=== PATIENT | female | born 1995 | race Caucasian/White ===

== ENCOUNTER 2018-11-19 02:19 | Inpatient (IN) | payer OTHER ==
[2018-11-19 03:43] LABS: ADD UMIC YES; UR ASCORBIC ACID NEGATIVE (NEGATIVE); UR BACTERIA FEW /HPF (NONE SEEN); UR BILIRUBIN (Dip) NEGATIVE (NEGATIVE); UR BLOOD (Dip) NEGATIVE (NEGATIVE); UR CLARITY CLEAR (CLEAR); UR COLOR YELLOW (YELLOW); UR GLUCOSE (Dip) NEGATIVE (NEGATIVE); UR KETONES (Dip) NEGATIVE (NEGATIVE); UR LEUKOCYTE ESTERASE (Dip) 1+ Leu/ul (NEGATIVE); UR NITRITE (Dip) NEGATIVE (NEGATIVE); UR RBC 1 /HPF (0-5); UR SPECIFIC GRAVITY (Dip) 1.008 (1.003-1.030); UR SQUAMOUS EPITHELIAL CELL FEW /HPF (FEW); UR TOTAL PROTEIN (Dip) NEGATIVE (NEGATIVE); UR UROBILINOGEN (Dip) NEGATIVE (NEGATIVE); UR WBC 1 /HPF (0-5)
[2018-11-19 04:46] LABS: ADD MAN DIFF? NO
[2018-11-19 04:48] LABS: BASOPHIL # 0.1 10^3/ul (0.0-0.1); BASOPHILS % 0.5 % (0.0-2.0); EOSINOPHILS # 0.1 10^3/ul (0.0-0.5); EOSINOPHILS % 0.7 % (0.0-7.0); HEMATOCRIT 32.3 % (37.0-47.0); HEMOGLOBIN 11.4 g/dl (12.0-16.0); LYMPHOCYTES # 1.6 10^3/ul (0.8-2.9); LYMPHOCYTES % 16.9 % (15.0-51.0); MEAN CORPUSCULAR HGB CONC 35.3 g/dl (32.0-37.0); MONOCYTE # 0.8 10^3/ul (0.3-0.9); MONOCYTES % 8.5 % (0.0-11.0); PLATELET COUNT 164 10^3/UL (140-415); RED CELL DISTRIBUTION WIDTH 13.1 % (11.5-14.5)
[2018-11-19 04:48] LABS: WHITE BLOOD COUNT 9.7 10^3/ul (4.8-10.8)
[2018-11-19 05:05] LABS: ALANINE AMINOTRANSFERASE 22 IU/L (13-69); ALBUMIN 3.3 g/dl (3.3-4.9); ALKALINE PHOSPHATASE 162 IU/L (42-121); ANION GAP 6 (5-13); ASPARTATE AMINO TRANSFERASE 24 IU/L (15-46); BILIRUBIN,INDIRECT 0.4 mg/dl (0-1.1); BILIRUBIN,TOTAL 0.4 mg/dl (0.2-1.3); BLOOD UREA NITROGEN 12 mg/dl (7-20); CALCIUM 9.2 mg/dl (8.4-10.2); CARBON DIOXIDE 24 mmol/L (21-31); CHLORIDE 107 mmol/L (97-110); CREATININE 0.61 mg/dl (0.44-1.00); Estimated GFR > 60 mL/min (>60); GLUCOSE 74 mg/dl (70-220); POTASSIUM 4.2 mmol/L (3.5-5.1); SODIUM 137 mmol/L (135-144); TOTAL PROTEIN 6.3 g/dl (6.1-8.1); URIC ACID 4.9 mg/dl (3.1-7.9)
[2018-11-19 05:07] LABS: INR 0.95; PROTIME 12.8 Sec (11.9-14.9)
[2018-11-19 05:08] LABS: PARTIAL THROMBOPLASTIN TIME 25.2 Sec (23.0-35.0)
[2018-11-19] MEDS ORDERED: AMPICILLIN 2 GM/NS (PMX) 100 ML IV (06:00)
[2018-11-19] MEDS ORDERED: LIDOCAINE 1% (MPF) 30 ML INJ INJ (06:00)
[2018-11-19] MEDS ORDERED: BUTORPHANOL 2 MG INJ IV ×2 (06:00)
[2018-11-19] MEDS ORDERED: MISOPROSTOL 200 MCG TAB PR ×3 (06:00→23:30)
[2018-11-19] MEDS ORDERED: OXYTOCIN 30 UNITS/LR 500 ML IV ×5 (06:00→23:30)
[2018-11-19] MEDS: MINERAL OIL LIGHT 10 ML VIAL TOP (06:00)
[2018-11-19] MEDS ORDERED: IBUPROFEN 600 MG TAB PO (06:00)
[2018-11-19] MEDS ORDERED: CARBOPROST 250 MCG INJ IM ×3 (06:00→23:30)
[2018-11-19] MEDS ORDERED: METHYLERGONOVINE 0.2 MG INJ IM ×3 (06:00→23:30)
[2018-11-19 07:32] LABS: ADD MAN DIFF? NO
[2018-11-19 07:33] LABS: BASOPHIL # 0.1 10^3/ul (0.0-0.1); BASOPHILS % 0.6 % (0.0-2.0); EOSINOPHILS # 0.1 10^3/ul (0.0-0.5); EOSINOPHILS % 0.5 % (0.0-7.0); HEMATOCRIT 35.1 % (37.0-47.0); HEMOGLOBIN 12.3 g/dl (12.0-16.0); LYMPHOCYTES # 1.8 10^3/ul (0.8-2.9); LYMPHOCYTES % 17.7 % (15.0-51.0); MEAN CORPUSCULAR HEMOGLOBIN 29.9 pg (29.0-33.0); MEAN CORPUSCULAR VOLUME 85.4 fl (82.0-101.0); MEAN PLATELET VOLUME 12.9 fl (7.4-10.4); MONOCYTE # 0.8 10^3/ul (0.3-0.9); NEUTROPHIL # 7.2 10^3/ul (1.6-7.5); NEUTROPHILS % 71.9 % (39.0-77.0); PLATELET COUNT 183 10^3/UL (140-415); RED BLOOD COUNT 4.11 10^6/ul (4.20-5.40); RED CELL DISTRIBUTION WIDTH 13.3 % (11.5-14.5)
[2018-11-19] MEDS: LACTATED RINGER'S 1,000 ML IV ×5 (07:47→22:51)
[2018-11-19 07:53] LABS: PROTIME 12.3 Sec (11.9-14.9)
[2018-11-19 07:54] LABS: PARTIAL THROMBOPLASTIN TIME 24.5 Sec (23.0-35.0)
[2018-11-19] MEDS: OXYTOCIN 30 UNITS/LR 500 ML IV (08:22)
[2018-11-19 09:55] LABS: HEPATITIS B SURFACE ANTIGEN NEGATIVE (NEGATIVE)
[2018-11-19] MEDS ORDERED: AMPICILLIN 1 GM/NS (PMX) 50 ML IV (10:00)
[2018-11-19 15:09] LABS: RAPID PLASMA REAGIN NONREACTIVE (NR)
[2018-11-19] MEDS ORDERED: DIPHENHYDRAMINE 50 MG INJ IV ×2 (16:30)
[2018-11-19] MEDS ORDERED: ONDANSETRON 4 MG INJ IV ×2 (16:30)
[2018-11-19] MEDS ORDERED: MEPERIDINE 25 MG INJ IV (16:30)
[2018-11-19] MEDS ORDERED: FENTAnyl 50 MCG/ML VIAL IV ×3 (16:30)
[2018-11-19] MEDS ORDERED: PROCHLORPERAZINE 10 MG INJ IV (16:30)
[2018-11-19] MEDS ORDERED: NALOXONE (0.4 MG/ML) INJ IV (16:30)
[2018-11-19] MEDS ORDERED: KETOROLAC 30 MG INJ IV (16:30)
[2018-11-19] MEDS ORDERED: HYDROmorphONE 1 MG/5 ML IV SYRINGE IV ×3 (16:30)
[2018-11-19] MEDS: FENTAnyl 2MCG/ML-ROPIV 0.2% 100 ML BAG EPI (18:37)
[2018-11-19] MEDS: MAGNESIUM SULFATE 4 GM/100 ML 100 ML IVPB (22:30)
[2018-11-19 22:54] LABS: ADD MAN DIFF? NO
[2018-11-19 22:56] LABS: WHITE BLOOD COUNT 10.7 10^3/ul (4.8-10.8)
[2018-11-19 22:56] LABS: BASOPHIL # 0.1 10^3/ul (0.0-0.1); BASOPHILS % 0.5 % (0.0-2.0); EOSINOPHILS % 0.1 % (0.0-7.0); HEMATOCRIT 31.9 % (37.0-47.0); HEMOGLOBIN 11.2 g/dl (12.0-16.0); LYMPHOCYTES # 1.3 10^3/ul (0.8-2.9); LYMPHOCYTES % 11.7 % (15.0-51.0); MEAN CORPUSCULAR HEMOGLOBIN 29.7 pg (29.0-33.0); MEAN CORPUSCULAR HGB CONC 35.1 g/dl (32.0-37.0); MEAN CORPUSCULAR VOLUME 84.6 fl (82.0-101.0); MONOCYTES % 8.9 % (0.0-11.0); NEUTROPHIL # 8.3 10^3/ul (1.6-7.5); PLATELET COUNT 167 10^3/UL (140-415); RED BLOOD COUNT 3.77 10^6/ul (4.20-5.40); RED CELL DISTRIBUTION WIDTH 13.1 % (11.5-14.5)
[2018-11-19] MEDS: CEFAZOLIN 2 GM/50 ML (PMX) 50 ML IVPB (23:00)
[2018-11-19] MEDS ORDERED: HYDROCODONE/APAP (5/325) TAB PO ×2 (23:00)
[2018-11-19] MEDS ORDERED: NA PHOSPHATE/BIPHOS 133 ML ENEMA PR (23:00)
[2018-11-19] MEDS ORDERED: METHYLERGONOVINE 0.2 MG TAB PO (23:00)
[2018-11-19] MEDS: MAGNESIUM SULFATE 20 GM/500 ML 500 ML IV (23:07)
[2018-11-19] MEDS: ACETAMINOPHEN 325 MG TAB PO (23:09)
[2018-11-19 23:20] LABS: INR 0.98; PROTIME 13.1 Sec (11.9-14.9)
[2018-11-19 23:21] LABS: PARTIAL THROMBOPLASTIN TIME 26.5 Sec (23.0-35.0)
[2018-11-19 23:23] LABS: ALANINE AMINOTRANSFERASE 21 IU/L (13-69); ALBUMIN 3.1 g/dl (3.3-4.9); ALKALINE PHOSPHATASE 148 IU/L (42-121); ANION GAP 8 (5-13); ASPARTATE AMINO TRANSFERASE 22 IU/L (15-46); BILIRUBIN,INDIRECT 0.5 mg/dl (0-1.1); BILIRUBIN,TOTAL 0.5 mg/dl (0.2-1.3); BLOOD UREA NITROGEN 8 mg/dl (7-20); CALCIUM 8.9 mg/dl (8.4-10.2); CARBON DIOXIDE 23 mmol/L (21-31); CHLORIDE 110 mmol/L (97-110); CREATININE 0.57 mg/dl (0.44-1.00); Estimated GFR > 60 mL/min (>60); GLUCOSE 66 mg/dl (70-220); POTASSIUM 3.3 mmol/L (3.5-5.1); SODIUM 141 mmol/L (135-144); TOTAL PROTEIN 5.9 g/dl (6.1-8.1)
[2018-11-19] MEDS ORDERED: CEFAZOLIN 2 GM/50 ML (PMX) 50 ML IVPB (23:30)
[2018-11-19] MEDS: AL HYDROX/MG HYDROX/SIMETH 30 ML CUP PO (23:30)
[2018-11-19] MEDS: CITRIC ACID/NA CITRATE 30 ML CUP PO (23:39)
[2018-11-19] MEDS: METOCLOPRAMIDE 10 MG INJ IV (23:39)
[2018-11-19] MEDS: FAMOTIDINE 20 MG INJ IV (23:39)
[2018-11-19] MEDS ORDERED: MAGNESIUM SULFATE 20 GM/500 ML 500 ML IV (23:46)
[2018-11-20] MEDS ORDERED: CA GLUCONATE (GM) 10% 10ML INJ IV
[2018-11-20] MEDS ORDERED: morphine SULFATE/PF (10 MG/10 ML) INJ
[2018-11-20] MEDS ORDERED: NA BICARBONATE 8.4% 50 ML SYG (00:10)
[2018-11-20] MEDS ORDERED: LIDOCAINE 1.5%/EPI MPF (SDV) 30 ML VIAL (00:10)
[2018-11-20] MEDS ORDERED: ONDANSETRON 4 MG INJ IV ×2 (00:30→01:00)
[2018-11-20] MEDS ORDERED: FENTAnyl 50 MCG/ML VIAL IV ×3 (00:30)
[2018-11-20] MEDS ORDERED: HYDROmorphONE 1 MG/5 ML IV SYRINGE IV ×3 (00:30)
[2018-11-20] MEDS ORDERED: MEPERIDINE 25 MG INJ IV (00:30)
[2018-11-20] MEDS ORDERED: PROCHLORPERAZINE 10 MG INJ IV (00:30)
[2018-11-20] MEDS ORDERED: DIPHENHYDRAMINE 50 MG INJ IV ×2 (00:30→01:00)
[2018-11-20] MEDS ORDERED: MIDAZOLAM 1 MG/ML 2 ML INJ (00:42)
[2018-11-20] MEDS ORDERED: OXYTOCIN 30 UNITS/LR 500 ML IV (00:47)
[2018-11-20] MEDS ORDERED: PHENYLephrine (100 MCG/ML) 10ML SYG (00:52)
[2018-11-20] MEDS ORDERED: NALOXONE (0.4 MG/ML) INJ IV (01:00)
[2018-11-20] MEDS ORDERED: NALBUPHINE HCL (10 MG/1 ML) INJ IV (01:00)
[2018-11-20] MEDS ORDERED: KETOROLAC 30 MG INJ IV (01:00)
[2018-11-20] MEDS ORDERED: ZOLPIDEM 5 MG TAB PO (01:00)
[2018-11-20] MEDS ORDERED: HYDROmorphONE 0.5 MG/0.5 ML SYG IV (01:00)
[2018-11-20] MEDS: KETOROLAC 30 MG INJ IV ×5 (01:48→20:33)
[2018-11-20] MEDS: MAGNESIUM SULFATE 20 GM/500 ML 500 ML IV ×2 (02:20→21:57)
[2018-11-20] MEDS: OXYTOCIN 30 UNITS/LR 500 ML IV ×3 (03:40→21:01)
[2018-11-20] MEDS ORDERED: IBUPROFEN 800 MG TAB PO (06:00)
[2018-11-20] MEDS: CEFAZOLIN 2 GM/50 ML (PMX) 50 ML IVPB ×2 (06:33→16:50)
[2018-11-20 08:50] LABS: MAGNESIUM 3.5 mg/dl (1.7-2.5)
[2018-11-20] MEDS: LABETALOL 100 MG TAB PO (12:05)
[2018-11-20 12:06] LABS: MAGNESIUM 2.7 mg/dl (1.7-2.5)
[2018-11-20 18:49] LABS: MAGNESIUM 3.7 mg/dl (1.7-2.5)
[2018-11-20] MEDS: SENNA/DOCUSATE NA (8.6MG/50MG) TAB PO ×2 (20:31→21:03)
[2018-11-20] MEDS: HYDROmorphONE 0.5 MG/0.5 ML SYG IV (22:23)
[2018-11-21] MEDS: CEFAZOLIN 2 GM/50 ML (PMX) 50 ML IVPB (00:22)
[2018-11-21] MEDS: KETOROLAC 30 MG INJ IV ×2 (00:32→06:26)
[2018-11-21 00:55] LABS: ADD MAN DIFF? NO
[2018-11-21 00:56] LABS: BASOPHILS % 0.3 % (0.0-2.0); EOSINOPHILS % 0.2 % (0.0-7.0); HEMATOCRIT 29.9 % (37.0-47.0); HEMOGLOBIN 10.5 g/dl (12.0-16.0); LYMPHOCYTES # 1.3 10^3/ul (0.8-2.9); LYMPHOCYTES % 11.2 % (15.0-51.0); MEAN CORPUSCULAR HEMOGLOBIN 29.7 pg (29.0-33.0); MEAN CORPUSCULAR HGB CONC 35.1 g/dl (32.0-37.0); MEAN CORPUSCULAR VOLUME 84.7 fl (82.0-101.0); MEAN PLATELET VOLUME 12.1 fl (7.4-10.4); MONOCYTE # 0.9 10^3/ul (0.3-0.9); MONOCYTES % 7.6 % (0.0-11.0); NEUTROPHIL # 9.2 10^3/ul (1.6-7.5); NEUTROPHILS % 79.9 % (39.0-77.0); PLATELET COUNT 164 10^3/UL (140-415); RED BLOOD COUNT 3.53 10^6/ul (4.20-5.40); RED CELL DISTRIBUTION WIDTH 13.2 % (11.5-14.5)
[2018-11-21 00:56] LABS: WHITE BLOOD COUNT 11.5 10^3/ul (4.8-10.8)
[2018-11-21 01:16] LABS: MAGNESIUM 3.2 mg/dl (1.7-2.5)
[2018-11-21 01:16] LABS: ALANINE AMINOTRANSFERASE 19 IU/L (13-69); ALBUMIN 2.8 g/dl (3.3-4.9); ALKALINE PHOSPHATASE 124 IU/L (42-121); ASPARTATE AMINO TRANSFERASE 27 IU/L (15-46); BILIRUBIN,INDIRECT 0.4 mg/dl (0-1.1); BILIRUBIN,TOTAL 0.4 mg/dl (0.2-1.3); INR 0.96; PROTIME 12.9 Sec (11.9-14.9); TOTAL PROTEIN 5.3 g/dl (6.1-8.1)
[2018-11-21 01:17] LABS: PARTIAL THROMBOPLASTIN TIME 29.1 Sec (23.0-35.0)
[2018-11-21] MEDS: SENNA/DOCUSATE NA (8.6MG/50MG) TAB PO ×2 (09:23→21:00)
[2018-11-21] MEDS: LANOLIN HPA 1 PKT TOP (09:24)
[2018-11-21] MEDS: IBUPROFEN 800 MG TAB PO ×2 (15:12→21:28)
[2018-11-21] MEDS: LABETALOL 100 MG TAB PO (21:50)
[2018-11-22] MEDS: IBUPROFEN 800 MG TAB PO (05:39)
[2018-11-22] MEDS: SENNA/DOCUSATE NA (8.6MG/50MG) TAB PO (09:00)
[2018-11-22] MEDS: DIPHTH/TET/ACEL PERTUSS (ADULT) 0.5 ML VIAL IM* (09:00)
[2018-11-22] MEDS: MEASLES,MUMPS,RUBELLA VACCINE INJ SC* (09:00)
[2018-11-22] MEDS: LABETALOL 100 MG TAB PO (10:34)
== END 2018-11-22 15:45 | disposition home or self-care (01) | DRG 788 ==
LOC: OBT 02:19 → L-D 11-20 00:20 → PP1 11-20 03:54 → L-D 02:19 → OBT 05:55 → L-D 05:55
PROC: 10D00Z1 Extraction of Products of Conception, Low, Open Approach (ICD-10-PCS; principal; 2018-11-20 00:30)
DX: O14.04 Mild to moderate pre-eclampsia, complicating childbirth (principal); O62.0 Primary inadequate contractions; Z3A.38 38 weeks gestation of pregnancy; Z37.0 Single live birth
CPT/HCPCS: 76705; 76815; 76818; 80053; 80076; 81001; 83735; 84560; 85025; 85384; 85610; 85730; 86592; 86850; 86900; 86901; 87340; 99464